=== PATIENT | female | born 1980 | race Caucasian/White ===

== ENCOUNTER 2017-09-07 02:25 | Emergency (ER) | payer OTHER ==
[2017-09-07] MEDS ORDERED: Ketorolac Tromethamine 30 MG/ML VIAL ONE (02:53)
[2017-09-07] MEDS ORDERED: diphenhydrAMINE 50 MG/ML VIAL ONE (02:53)
[2017-09-07] MEDS ORDERED: Promethazine HCl 25 MG/ML VIAL ONE (03:13)
[2017-09-07] MEDS ORDERED: Magnesium Sulfate 2 GM/100 ML BAG ONE (04:13)
[2017-09-07] MEDS ORDERED: traMADol HCl 50 MG TAB ONE (05:04)
== END 2017-09-07 05:10 | disposition home or self-care (01) ==
LOC: ERS 02:25
DX: G89.29 Other chronic pain (principal); R51 Headache; J45.909 Unspecified asthma, uncomplicated; Z79.899 Other long term (current) drug therapy
CPT/HCPCS: 96361; 96365; 96375; J1200; J1885; J2550; J3475

== ENCOUNTER 2017-10-06 06:55 | Outpatient (CLI) | payer OTHER ==
--- NOTE | 2017-10-06 14:30 | NM ---
NUCLEAR MEDICINE GASTRIC EMPTYING STUDY WITH MEAL: HISTORY: Nausea and vomiting, R11.2. COMPARISON: None. TECHNIQUE: Planar images of the abdomen were performed after the oral administration of 2.1 mCi Technetium 99m s ulfur colloid orally in an egg. Imaging curves were obtained. FINDINGS: There is 8% emptying at 25 minutes, 15% at 1 hour, 80% at 2 hours, and 96% at 3 hours. IMPRESSION: Normal gastric emptying. POS: BRNADY
== END 2017-10-06 06:56 | disposition home or self-care (01) ==
LOC: NM 06:55
PROVIDERS: ATTEND Internal Medicine Gastroenterology
DX: R11.2 Nausea with vomiting, unspecified (principal)
CPT/HCPCS: 78264; A9541

== ENCOUNTER 2017-11-03 05:45 | Emergency (ER) | payer OTHER ==
[2017-11-03] MEDS ORDERED: Promethazine HCl 25 MG/ML VIAL ONE (06:18)
[2017-11-03] MEDS ORDERED: Ketorolac Tromethamine 60 MG/2 ML VIAL ONE (06:18)
[2017-11-03] MEDS ORDERED: Acetaminophen 500 MG TAB ONE (06:18)
[2017-11-03] MEDS ORDERED: Haloperidol Lactate 5 MG/ML VIAL ONE (06:18)
== END 2017-11-03 06:49 | disposition home or self-care (01) ==
LOC: ERS 05:45
DX: R51 Headache (principal); M41.9 Scoliosis, unspecified; J45.909 Unspecified asthma, uncomplicated; K31.84 Gastroparesis; F17.220 Nicotine dependence, chewing tobacco, uncomplicated
CPT/HCPCS: 96372; J1630; J1885; J2550

== ENCOUNTER 2017-11-28 03:51 | Emergency (ER) | payer OTHER ==
[2017-11-28] MEDS ORDERED: traMADol HCl 50 MG TAB ONE (05:05)
[2017-11-28] MEDS ORDERED: Ibuprofen 800 MG TAB ONE (05:06)
== END 2017-11-28 05:36 | disposition home or self-care (01) ==
LOC: ERS 03:51
DX: K02.9 Dental caries, unspecified (principal); G43.909 Migraine, unspecified, not intractable, without status migrainosus; J45.909 Unspecified asthma, uncomplicated; F17.220 Nicotine dependence, chewing tobacco, uncomplicated; Z79.899 Other long term (current) drug therapy
CPT/HCPCS: 99406

== ENCOUNTER 2018-01-03 14:45 | Emergency (ER) | payer OTHER | END 2018-01-03 16:17 | disposition home or self-care (01) | LOC: ERS 14:45 | DX: R51 Headache (principal); G43.909 Migraine, unspecified, not intractable, without status migrainosus; J45.909 Unspecified asthma, uncomplicated; F17.220 Nicotine dependence, chewing tobacco, uncomplicated | CPT/HCPCS: 99283 ==

== ENCOUNTER 2018-01-24 22:05 | Emergency (ER) | payer OTHER ==
[~2018-01-24 22:05] MED LIST: ISOVUE-370 76%-LOCM 1 ML ONE
[2018-01-24 23:04] LABS: #Eosinphils 0.1 thou/uL (0.0-0.7); #Lymphocytes 2.8 thou/uL (1.20-3.40); #Monocytes 0.7 thou/uL (0.11-0.59); #Neutrophils 6.6 thou/uL (1.40-6.50); %Basophils 0.4 % (0.0-1.0); %Eosinophils 1.1 % (0.0-10.0); %Monocytes 6.8 % (0.0-10.0); %Neutrophils 64.8 % (42.0-75.0); Hemoglobin 13.6 g/dL (12.0-16.0); Mean Corpuscular HGB CONC 34.2 g/dL (32.0-36.0); Mean Corpuscular Hemoglobin 28.8 pg (27.0-31.0); Mean Corpuscular Volume 84.4 fl (81.0-99.0); Mean Platelet Volume 7.9 fL (7.4-10.4); Platelet Count 310 thou/uL (130-400); RBC Distribution Width 13.4 % (11.5-14.5); White Blood Cell (WBC) Count 10.2 thou/uL (4.8-10.8)
[2018-01-24 23:24] LABS: ALT (SGPT) 14 U/L (8-55); AST (SGOT) 13 U/L (5-34); Albumin 3.8 g/dL (3.5-5.0); Alkaline Phosphatase 99 U/L (40-150); Anion Gap 13 mmol/L (10-20); BUN (Urea Nitrogen) 8 mg/dL (7.0-18.7); Bilirubin, Total 0.3 mg/dL (0.2-1.2); Calc. Creatinine Clearance 0 mL/min (70-130); Carbon Dioxide 18 mmol/L (22-29); Chloride 108 mmol/L (98-107); Estimated GFR-MDRD 86; Globulin 3.1 g/dL (2.4-3.5); Glucose 100 mg/dL (70-105); Lipase 12 U/L (8-78); Potassium 3.9 mmol/L (3.5-5.1); Protein, Total 6.9 g/dL (6.0-8.3); Sodium 135 mmol/L (136-145)
--- NOTE | 2018-01-24 23:57 | CT ---
CT THORAX WITH CONTRAST: DATE: 01/24/18 TIME: 11:36 p.m. HISTORY: 38-year-old female with epigastric and chest pain. FINDINGS: There is a scoliosis of the upper thoracic spine. The lungs are clear. There is pleural effusion or p neumothorax. No mediastinal or hilar lymphadenopathy. No thoracic aortic aneurysm or dissection. Trac hea and main bronchi are patent and clear. No pneumomediastinum. No destructive osseous lesion. IMPRESSION: 1. Scoliosis of the upper thoracic spine. 2. Otherwise negative. MP Rao POS: JESU
[2018-01-25] MEDS ORDERED: Sucralfate 1 GM/10 ML UDCUP ONE (00:55)
[2018-01-25] MEDS ORDERED: Ketorolac Tromethamine 30 MG/ML VIAL ONE (02:07)
--- NOTE | 2018-01-26 11:57 | EKG ---
Test Reason : Blood Pressure : / mmHG Vent. Rate : 097 BPM Atrial Rate : 097 BPM P-R Int : 130 ms QRS Dur : 078 ms QT Int : 338 ms P-R-T Axes : 047 033 019 degrees QTc Int : 429 ms Normal sinus rhythm Nonspecific T wave abnormality Abnormal ECG Confirmed by RUSSELL LITTLE M.D. ([id number]), industrial editor SHANNON SIMS ([id number] on 01/26/2018 11:56:21 AM Referred By: Confirmed By:RUSSELL LITTLE M.D.
== END 2018-01-25 03:19 | disposition home or self-care (01) ==
LOC: ERS 22:05
DX: G89.18 Other acute postprocedural pain (principal); G43.909 Migraine, unspecified, not intractable, without status migrainosus; J45.909 Unspecified asthma, uncomplicated; K31.84 Gastroparesis; M41.9 Scoliosis, unspecified; F17.220 Nicotine dependence, chewing tobacco, uncomplicated
CPT/HCPCS: 71260; 80053; 83690; 85025; 93005; 96374; J1885

== ENCOUNTER 2018-04-25 22:30 | Emergency (ER) | payer OTHER ==
[2018-04-25] MEDS ORDERED: traMADol HCl 50 MG TAB ONE (23:03)
[2018-04-25] MEDS ORDERED: Promethazine 25 MG TAB ONE (23:04)
== END 2018-04-25 23:52 | disposition home or self-care (01) ==
LOC: ERS 22:30
DX: G43.909 Migraine, unspecified, not intractable, without status migrainosus (principal); F32.9 Major depressive disorder, single episode, unspecified; F17.220 Nicotine dependence, chewing tobacco, uncomplicated; K31.84 Gastroparesis; M41.9 Scoliosis, unspecified; J45.909 Unspecified asthma, uncomplicated
CPT/HCPCS: 99283

== ENCOUNTER 2018-05-31 19:02 | Emergency (ER) | payer OTHER ==
[2018-05-31 20:52] LABS: Bilirubin Small (Negative); Blood, Urine Negative (Negative); Clarity TURBID (Clear); Glucose, Urine (Dipstick) Negative (Negative); Leukocyte Negative (Negative); Nitrite Negative (Negative); Protein, Urine (Dipstick) Trace mg/dL (Neg-Trace); pH, Urine 5.5 (5.0-9.0)
[2018-05-31 21:20] LABS: Anion Gap 14 mmol/L (10-20); BUN (Urea Nitrogen) 7 mg/dL (7.0-18.7); Calc. Creatinine Clearance 0 mL/min (70-130); Calcium 8.7 mg/dL (7.8-10.44); Carbon Dioxide 19 mmol/L (22-29); Chloride 111 mmol/L (98-107); Estimated GFR-MDRD 74; Glucose 94 mg/dL (70-105); Potassium 3.3 mmol/L (3.5-5.1); Sodium 141 mmol/L (136-145)
== END 2018-05-31 22:01 | disposition home or self-care (01) ==
LOC: ERS 19:02
DX: E86.0 Dehydration (principal); J45.909 Unspecified asthma, uncomplicated; G43.909 Migraine, unspecified, not intractable, without status migrainosus; F32.9 Major depressive disorder, single episode, unspecified; F17.220 Nicotine dependence, chewing tobacco, uncomplicated; Z79.899 Other long term (current) drug therapy
CPT/HCPCS: 36415; 80048; 81003; 96360